=== PATIENT | female | born 1975 | race Caucasian/White ===

== ENCOUNTER → 2016-05-20 | Outpatient (CLI) | payer OTHER ==
[~2016-05-20] MED LIST: ADDERALL20 MG PO; CELEXA 20MG20 MG/TAB PO; LORTAB 5/500 501 TAB PO; MOTRIN 600600 MG/TAB PO; PERCOCET 325 MG1 TA2 PO; PRENATAL1 TA1 PO; WELLBUTRIN XL300 M1 PO; ZOFRAN 4MG T4 MG/TAB PO; ZOFRAN8 MG PO; ZOLOFT 100MG100 MG
== END ==
LOC: COL.RAD 14:59
DX: E04.2 Nontoxic multinodular goiter (principal); E03.8 Other specified hypothyroidism; R49.1 Aphonia

== ENCOUNTER → 2016-11-25 | Outpatient (CLI) | payer OTHER | LOC: COL.RAD 07:56 | DX: M72.2 Plantar fascial fibromatosis (principal); S93.411A Sprain of calcaneofibular ligament of right ankle, initial encounter; M25.471 Effusion, right ankle ==

== ENCOUNTER → 2017-02-15 | Outpatient (CLI) | payer OTHER | LOC: BHSO 09:24 | DX: F33.1 Major depressive disorder, recurrent, moderate (principal) | CPT/HCPCS: 90791-AI ==

== ENCOUNTER → 2017-03-26 | Outpatient (CLI) | payer OTHER | LOC: BHSO 15:13 | DX: F41.1 Generalized anxiety disorder (principal) ==

== ENCOUNTER → 2017-05-06 | Outpatient (CLI) | payer OTHER | LOC: BHSO 15:29 | DX: F41.1 Generalized anxiety disorder (principal) | CPT/HCPCS: G0463 ==

== ENCOUNTER → 2017-08-11 | Outpatient (CLI) | payer OTHER | LOC: BHSO 10:53 | DX: F90.0 Attention-deficit hyperactivity disorder, predominantly inattentive type (principal) | CPT/HCPCS: G0463 ==

== ENCOUNTER → 2017-09-07 | Outpatient (CLI) | payer OTHER | LOC: BHSO 09:35 | DX: F90.0 Attention-deficit hyperactivity disorder, predominantly inattentive type (principal) | CPT/HCPCS: G0463 ==

== ENCOUNTER → 2017-12-09 | Outpatient (CLI) | payer OTHER | LOC: BHSO 15:57 | DX: F41.1 Generalized anxiety disorder (principal) ==

== ENCOUNTER → 2018-03-10 | Outpatient (CLI) | payer OTHER | LOC: BHSO 15:51 | DX: F41.1 Generalized anxiety disorder (principal) | CPT/HCPCS: G0463 ==

== ENCOUNTER → 2018-05-30 | Outpatient (CLI) | payer OTHER ==
[~2018-05-30] MED LIST changes: +ALDACTONE50 MG PO; +EFFEXOR-XR150 MG PO; +KLONOPIN 0.5MG0.5 MG; +KLONOPIN 0.5MG0.5 MG PO; +LAMICTAL200 MG PO; +LYRICA 50MG CAP50 MG PO; +MULTI VITAMINS1 TAB PO; +SYNTHROID0.088 MG/T PO
== END ==
LOC: LIGHT 13:38
DX: I10 Essential (primary) hypertension (principal); E03.9 Hypothyroidism, unspecified; E78.5 Hyperlipidemia, unspecified; F32.9 Major depressive disorder, single episode, unspecified; Z68.41 Body mass index [BMI] 40.0-44.9, adult; Z71.3 Dietary counseling and surveillance

== ENCOUNTER → 2018-06-03 | Outpatient (CLI) | payer OTHER | LOC: BHSO 14:45 | DX: F41.1 Generalized anxiety disorder (principal) | CPT/HCPCS: G0463 ==

== ENCOUNTER → 2018-06-06 | Outpatient (CLI) | payer OTHER | LOC: LIGHT 16:00 → BHSO 16:00 | DX: I10 Essential (primary) hypertension (principal); E03.9 Hypothyroidism, unspecified; E78.5 Hyperlipidemia, unspecified; F32.9 Major depressive disorder, single episode, unspecified; Z68.41 Body mass index [BMI] 40.0-44.9, adult; Z71.3 Dietary counseling and surveillance ==

== ENCOUNTER → 2018-06-14 | Outpatient (CLI) | payer OTHER | LOC: LIGHT 15:51 | DX: I10 Essential (primary) hypertension (principal); E03.9 Hypothyroidism, unspecified; E78.5 Hyperlipidemia, unspecified; F32.9 Major depressive disorder, single episode, unspecified; Z68.41 Body mass index [BMI] 40.0-44.9, adult; Z71.3 Dietary counseling and surveillance ==

== ENCOUNTER → 2018-06-28 | Outpatient (CLI) | payer OTHER ==
[~2018-06-28] VITALS: Ht 151.1 cm; Wt 94.1 kg
[~2018-06-28] MED LIST changes: +GLUCOPHAGE500 MG/TAB PO
[2018-06-28 14:03] VITALS: BP 110/76; PULSE 72
== END ==
LOC: LIGHT 13:24
DX: I10 Essential (primary) hypertension (principal); E03.9 Hypothyroidism, unspecified; E78.5 Hyperlipidemia, unspecified; F32.9 Major depressive disorder, single episode, unspecified; Z68.41 Body mass index [BMI] 40.0-44.9, adult; Z71.3 Dietary counseling and surveillance
CPT/HCPCS: G0463

== ENCOUNTER → 2018-06-28 | Outpatient (CLI) | payer OTHER | LOC: BHSO 09:06 | DX: Z01.818 Encounter for other preprocedural examination (principal) ==

== ENCOUNTER → 2018-07-26 | Outpatient (CLI) | payer OTHER ==
[~2018-07-26] VITALS: Ht 151.1 cm; Wt 97.5 kg
[2018-07-26 16:33] VITALS: BP 136/90; PULSE 60
--- NOTE | 2018-07-26 18:03 | NUR ---
REVIEWED WITH CLIENT THE SAXENDA MEDICATION: SIDE EFFECTS, COUPON USAGE, WASHING HANDS PRIOR TO INJECTION OF MEDICATION,IMPORTANCE OF ROTATING SQ INJ. SITES, CLEANSING SKIN WITH ALCOHOL, NEW NEEDLE WITH EACH USE, DO NOT TOUCH NEEDLE TIP OR CUSHION AREA OF INJECTION PEN. DEMONSTRATION SAXENDA PEN SHOWN TO CLIENT: CLEARING PEN OF AIR, ROTATING PEN TO DOSAGE AMOUNT, HOW TO ATTACH AND DETACH NEEDLE, NEEDLE DISPOSAL IN RED NEEDLE CONTAINER. ENCOURAGED CLIENT TO INJECT HERSELF IN THE EVENING TO DECREASE POSSIBLE SIDE EFFECTS. TO INCREASE DAILY DOSAGE WEEKLY BY 0.6MG FOR 1 WEEK SQ, THEN 1.2MG DAILY FOR 1 WEEK SQ, THEN 1.8MG DAILY FOR 1 WEEK SQ, THEN 2.4MG DAILY X 1WEEK SQ, THEREAFTER 3.0MG DAILY SQ. RELATES THAT SHEINJECTED INSULIN WHEN SHE HAD GESTATIONAL DIABETES, HER BROTHER WAS A JUVENILE DIABETIC AND SHE GIVES HER SON HIS ALLERGY SHOTS. REPORTED THAT SHE FELT VERY COMFORTABLE WITH THE INJECTION. INSTRUCTED CLIENT THAT IF SHE HAD SIDE EFFECTS OF INCREASING NAUSE AND STOMACH DISCOMFORT, SHE COULD REMAIN AT THE SAME DOSAGE FOR SEVERAL WEEKS UNTIL THE SIDE EFFECTS IMPROVED AND THEN COULD INCREASE DOSAGE. TO CALL NURSE IF ANY QUESTIONS OR CONCERNS. ROUTINE.
== END ==
LOC: LIGHT 10:15
DX: I10 Essential (primary) hypertension (principal); E03.9 Hypothyroidism, unspecified; E78.5 Hyperlipidemia, unspecified; F32.9 Major depressive disorder, single episode, unspecified; Z68.41 Body mass index [BMI] 40.0-44.9, adult; Z71.3 Dietary counseling and surveillance
CPT/HCPCS: G0463

== ENCOUNTER → 2018-08-02 | Outpatient (CLI) | payer OTHER | LOC: MC.RAD 07-28 13:15 | DX: Z12.31 Encounter for screening mammogram for malignant neoplasm of breast (principal); N64.59 Other signs and symptoms in breast ==

== ENCOUNTER → 2018-08-23 | Outpatient (CLI) | payer OTHER ==
[~2018-08-23] VITALS: Ht 151.1 cm; Wt 93.7 kg
[~2018-08-23] MED LIST changes: +VICTOZA6 MG/ML SQ
[2018-08-23 13:29] VITALS: BP 108/86; PULSE 80
== END ==
LOC: LIGHT 10:48
DX: I10 Essential (primary) hypertension (principal); E03.9 Hypothyroidism, unspecified; E78.5 Hyperlipidemia, unspecified; F32.9 Major depressive disorder, single episode, unspecified; E66.01 Morbid (severe) obesity due to excess calories; Z68.41 Body mass index [BMI] 40.0-44.9, adult; Z71.3 Dietary counseling and surveillance
CPT/HCPCS: G0463

== ENCOUNTER → 2018-10-27 | Outpatient (CLI) | payer OTHER ==
[~2018-10-27] VITALS: Ht 151.1 cm; Wt 92.5 kg
[2018-10-27 14:43] VITALS: BP 112/80; PULSE 80
== END ==
LOC: LIGHT 14:17
DX: I10 Essential (primary) hypertension (principal); E03.9 Hypothyroidism, unspecified; E78.5 Hyperlipidemia, unspecified; F32.9 Major depressive disorder, single episode, unspecified; Z68.41 Body mass index [BMI] 40.0-44.9, adult; Z71.3 Dietary counseling and surveillance
CPT/HCPCS: G0463

== ENCOUNTER 2019-01-11 09:18 | Emergency (ER) | payer OTHER ==
[~2019-01-11] VITALS: Ht 152.4 cm; Wt 84.1 kg
[2019-01-11 10:05] LABS: COLLECTION METHOD CLEAN CATCH
[2019-01-11 10:09] LABS: BASO % 0.3 % (0.0-2.0); EOS # 0.1 (0.0-0.7); EOS % 1.5 % (0-4.0); GRAN % 64.6 % (42.2-75.2); HEMATOCRIT 44.9 % (37.0-47.0); HEMOGLOBIN 15.3 g/dl (12.5-16.0); LYMPH # 1.7 (1.2-3.4); LYMPH % 27.9 % (20.0-51.0); MEAN CELL VOLUME 96 fl (80.0-100.0); MEAN CORPUSCULAR HEMOGLOBIN 33 pg (27.0-31.0); MEAN CORPUSCULAR HGB CONC 34 g/dl (33.0-37.0); MEAN PLATELET VOLUME 10.4 fl (7.4-10.4); MONO # 0.3 (0.1-0.6); MONO % 5.4 % (1.7-9.3); PLATELET COUNT 310 K/mm3 (130-400); RED BLOOD COUNT 4.66 M/mm3 (4.10-5.30)
[2019-01-11 10:13] LABS: MUCOUS Present /lpf; PH 5 (5-8); SQUAMOUS EPITHELIAL 0-2 /hpf; URINE APPEARANCE Clear; URINE BACTERIA None Seen /hpf; URINE BILIRUBIN Negative (NEGATIVE); URINE BLOOD 3+ (NEGATIVE); URINE COLOR Yellow; URINE GLUCOSE Negative (NEGATIVE); URINE KETONE 1+ (NEGATIVE); URINE LEUKOCYTE ESTERASE Negative (NEGATIVE); URINE NITRATE Negative (NEGATIVE); URINE PROTEIN(semi-quant) Negative (NEGATIVE); URINE RBC >50 /hpf; URINE UROBILINOGEN Negative (NEGATIVE); URINE WBC 0-2 /hpf
[2019-01-11 10:21] LABS: ALBUMIN 4.4 gm/dL (3.5-5.0); BILIRUBIN,TOTAL 0.5 mg/dL (0.0-1.0); CALCIUM 9.2 mg/dL (8.4-10.2); CREATININE, serum 0.6 (0.52-1.25); TOTAL PROTEIN 7.5 gm/dL (6.4-8.2)
[2019-01-11 11:33] VITALS: BP 143/106; PULSE 75; TEMP 97.5
[2019-01-11] MEDS ORDERED: ZOFRAN 4MG T4 MG/TAB PO (11:34)
== END 2019-01-11 11:26 | disposition home or self-care (01) ==
LOC: COL.ER 09:18
PROVIDERS: Nurse Practitioner Primary Care
DX: E87.6 Hypokalemia (principal); R19.7 Diarrhea, unspecified; R11.10 Vomiting, unspecified; E11.9 Type 2 diabetes mellitus without complications; E66.9 Obesity, unspecified; F32.9 Major depressive disorder, single episode, unspecified; F41.9 Anxiety disorder, unspecified; Z79.84 Long term (current) use of oral hypoglycemic drugs; Z98.84 Bariatric surgery status
CPT/HCPCS: J2405; J3480; J7030

== ENCOUNTER → 2019-03-10 | Outpatient (CLI) | payer OTHER | LOC: BHSO 16:01 | DX: F41.1 Generalized anxiety disorder (principal) | CPT/HCPCS: G0463 ==

== ENCOUNTER → 2019-06-02 | Outpatient (CLI) | payer OTHER | LOC: BHSO 15:48 | DX: F41.1 Generalized anxiety disorder (principal) | CPT/HCPCS: G0463 ==

== ENCOUNTER → 2020-05-27 | Outpatient (CLI) | payer OTHER | LOC: COL.RAD 10:30 | DX: G43.009 Migraine without aura, not intractable, without status migrainosus (principal); R41.0 Disorientation, unspecified ==

== ENCOUNTER → 2021-12-03 | Outpatient (CLI) | payer MEDICAID | LOC: COL.RAD 07:30 | DX: M47.22 Other spondylosis with radiculopathy, cervical region (principal) | CPT/HCPCS: A9575 ==

== ENCOUNTER → 2022-07-15 | Outpatient (CLI) | payer MEDICAID | LOC: MC.RAD 06:55 | DX: Z12.31 Encounter for screening mammogram for malignant neoplasm of breast (principal) ==